=== PATIENT | female | born 2005 | race African-American/Black ===

== ENCOUNTER 2025-02-03 17:36 | Emergency (ER) | payer OTHER, MEDICAID ==
[~2025-02-03] VITALS: Ht 160 cm; Wt 79.4 kg
[2025-02-03 17:50] VITALS: TEMP 36.8; O2SAT 100
[2025-02-03] MEDS: LIDOCAINE HCL 1% 20ML VIAL INFIL ONE (20:00)
[2025-02-03] MEDS ORDERED: TOPUD MT (22:55)
[2025-02-03] MEDS ORDERED: BO1 TP (22:55)
[2025-02-03 23:08] VITALS: BP 109/57; PULSE 81; RESP 14; O2SAT 100
== END 2025-02-03 23:11 | disposition home or self-care (01) ==
LOC: ER 17:36
DX: S01.21XA Laceration without foreign body of nose, initial encounter (principal); V89.2XXA Person injured in unspecified motor-vehicle accident, traffic, initial encounter; Y93.89 Activity, other specified; Y92.89 Other specified places as the place of occurrence of the external cause; Y99.8 Other external cause status
CPT/HCPCS: 99284; 70450; 12011; J2003

== ENCOUNTER 2025-05-07 23:50 | Emergency (ER) | payer MEDICAID, OTHER ==
[~2025-05-07] VITALS: Ht 162.6 cm; Wt 82.0 kg
[~2025-05-07 23:50] MED LIST: BO1 TP; TOPUD MT
[2025-05-07 23:54] VITALS: TEMP 98.1; O2SAT 97
[2025-05-08] MEDS: IBUPROFEN 800MG TABLET PO ONE (01:17)
[2025-05-08] MEDS ORDERED: ACET-2708 MT (01:36)
[2025-05-08 01:53] VITALS: BP 110/59; PULSE 94; RESP 16; O2SAT 99
== END 2025-05-08 03:18 | disposition home or self-care (01) ==
LOC: ER 23:50
DX: R51.9 Headache, unspecified (principal); Y08.89XA Assault by other specified means, initial encounter; Y93.89 Activity, other specified; Y92.89 Other specified places as the place of occurrence of the external cause; Y99.8 Other external cause status
CPT/HCPCS: 99284